=== PATIENT | male | born 1950 | race Caucasian/White ===

== ENCOUNTER → 2023-06-19 11:11 | Outpatient (REF) | payer MEDICARE, SELFPAY | LOC: MRI 3T 11:11 | PROVIDERS: ATTENDING PHYSICIAN Family Medicine | DX: M25.562 Pain in left knee (principal) | CPT/HCPCS: 73721 ==

== ENCOUNTER → 2023-07-21 15:05 | Outpatient (REF) | payer MEDICARE, SELFPAY | LOC: RAD 15:05 | PROVIDERS: ATTENDING PHYSICIAN Nurse Practitioner Family; FAMILY PHYSICIAN Family Medicine | DX: R74.8 Abnormal levels of other serum enzymes (principal); F10.10 Alcohol abuse, uncomplicated; R53.83 Other fatigue | CPT/HCPCS: 74177; Q9967 ==

== ENCOUNTER 2023-08-10 06:04 | Inpatient (IN) | payer MEDICARE, SELFPAY ==
--- NOTE | 2023-07-20 13:32 | CM ---
Addendum entered by Shanna Myles 07/21/23 06:26:
[place] text received from Dr. Jarrell that patient can just do a home exercise program on his own and not attend outpatient PT.
Original Note:
Patient is scheduled for an elective L TKR 08/10/23. Spoke with patient prior to surgery via telephone. Patient had a R TKR at in 2019. Reintroduced role of Orthopedic Navigator. Patient reports that he lives with his in a one story home.
There are two steps to enter. There is finished basement he has to go to daily. He currently functions independently and occasionally uses a cane. He also has a rolling walker. He has never had VN services. PCP is Ernesto Chowdary.
Discussed orthopedic program and post surgical plans. Reviewed anticipated length of stay and that goal is for him to return home at discharge. Also reviewed outpatient PT. Patient is in agreement with tentative plan and will have support from his
when he goes home. He states that he plans to do a home exercise program and will not be attending outpatient PT unless recommended. [place] text sent to Dr. Jarrell to discuss patient's plans; will await response.
Patient will complete online education.
Plan: Orthopedic Navigator will remain available to assist with the care of patient and will reassess discharge needs after surgery.
[2023-07-25 08:19] VITALS: BMI 29.2
[2023-07-25 08:45] LABS: Hematocrit 41.8 % (39.0-52.0); Hemoglobin 14.5 g/dL (13.0-18.0); Mean Corp Hgb Conc. 34.7 g/dL (33.0-37.0); Mean Corpuscular Hgb 31.6 pg (27.0-31.0); Mean Corpuscular Volume 91.1 fL (80.0-94.0); Mean Platelet Volume 9.6 fL (7.4-10.4); Platelet Count 327 10^3/uL (130-400); Red Blood Cell Count 4.59 10^6/uL (4.70-6.10); Red Cell Dist. Width 14.9 % (11.5-14.5); White Blood Cell Count 6.6 10^3/uL (4.8-10.8)
[2023-07-25 09:08] LABS: ALT (SGPT) 39 U/L (0-50); AST (SGOT) 49 U/L (17-59); Alkaline Phosphatase 69 U/L (38-126); Blood Urea Nitrogen 14 mg/dl (9-20); Calcium 9.1 mg/dl (8.4-10.2); Carbon Dioxide 31 mmol/L (22-30); Chloride 101 mmol/L (98-107); Estimated Creatinine Clearance 69 ml/min; Glucose 95 mg/dl (70-99); Potassium 4.5 mmol/L (3.5-5.1); Sodium 134 mmol/L (135-145); Total Bilirubin 0.6 mg/dl (0.2-1.3); Total Protein 6.7 g/dl (6.3-8.2); eGFR > 60.00
--- NOTE | 2023-07-25 12:05 | HPS.HSE ---
Family Physician
-
Family Physician: Ernesto Chowdary
Chief Complaint
-
Advanced primary osteoarthritis of the left knee.
History of Present Illness
The patient is a 72-year-old male presenting today for advanced primary osteoarthritis of the left knee. The patient previously underwent an uncomplicated right total knee arthroplasty in June [address] Errol Jarrell. He returns to
[facility] today with complaints of significant left knee pain associated with his osteoarthritis. He notes that his current left knee pain is greatly interfering with his activities of daily living and is overall impacting his quality of
life. He has tried and failed multiple conservative treatment measures in the past for his left knee pain. These conservative treatment measures include physical therapy, self-directed therapeutic exercises, injection therapy, medical management
with Tylenol and NSAIDs, and the application of ice and/or heat. Recent MRI findings of the left knee demonstrated a radial tear at the posterior root attachment of the medial meniscus, mucoid degeneration of the ACL, a moderate knee joint effusion
and a large Jin's cyst with suspicion for a partial Jin's cyst rupture. He was determined to be in need of a left total knee arthroplasty. He denies any current complaints today, such as chest pain, shortness of breath, nausea, vomiting,
diarrhea, lightheadedness, dizziness, cough, sore throat, or fever.
Medical History
Past Medical History
Past Medical History: Reports Other
Additional Past Medical History:
1. Osteoarthritis, status post right total knee arthroplasty, 06/2019, by Dr. Errol Jarrell.
2. Hyperlipidemia.
3. PVCs with intermittent palpitations, controlled with Metoprolol.
4. Left anterior fascicular block.
5. Mild-moderate valvular disease.
6. GERD.
7. Colon polyps.
8. GI bleed secondary to NSAIDs, 2008, without recurrence; on Lansoprazole.
9. History of fecal incontinence, controlled with Colestipol.
10. Migraines.
11. BPH with urinary retention.
12. Anxiety.
13. Depression.
14. Dysthymic disorder.
15. COVID 19, 05/2020, with residual fatigue.
16. Mild hyponatremia.
17. Prediabetes, A1c 5.9.
18. Remote history of tobacco abuse.
19. Daily alcohol.
Past Surgical History: Reports Other
Additional Past Surgical History:
1. Right total knee arthroplasty, 06/2019, by Dr. Errol aJrrell.
2. Left and right inguinal hernia repair.
3. Splenectomy.
4. Tonsillectomy.
5. Colonoscopy x2.
6. Endoscopy.
Social History
Tobacco: Former Smoker (He is a former 1 pack per day cigarette smoker who quit tobacco products altogether in 1987. )
Alcohol: Daily (He reportedly drinks 3 beers daily. )
Personal:
Living: Other (He lives with his in a one-level home.)
Family History
Family History: Not pertinent
Allergies / Home Medications
Allergy/Medication List:
Home medications:
1. Tylenol with Codeine 1-2 tablets p.o. every 6 hours as needed.
2. Ascorbic acid 1000 mg p.o. twice a day.
3. Cholecalciferol 1000 units p.o. daily.
4. Citalopram 5 mg p.o. daily.
5. Colestipol 4 grams p.o. daily.
6. [place] 5-325 mg, 1 tablet p.o. every 8 hours as needed.
7. Lansoprazole 30 mg p.o. daily.
8. Lorazepam 0.5 mg p.o. daily as needed.
9. Magnesium 500 mg p.o. daily.
10. Metoprolol tartrate 25 mg p.o. daily.
11. Multivitamin 1 tablet p.o. daily.
12. Sasser 3 1 capsule p.o. twice a day.
13. Rosuvastatin 40 mg p.o. every evening.
14. Sildenafil 50 mg p.o. daily as needed.
15. Zinc sulfate 220 mg p.o. daily.
Allergies: NSAIDs and Aspirin (contraindicated with prior GI bleed). Penicillin.
Review of Systems
-
A 12 point ROS was completed and negative except as noted: Yes
Physical Exam
Vital Signs
Blood pressure 146/87. Heart rate 57. Respirations 18. Pulse ox 97%.
Height 5 feet, 9.75 inches. Weight 91.7 kg. BMI 29.2.
Physical Exam
General: Well Developed, Well Nourished and No Apparent Distress
HEENT: NormoCephalic, Moist mucous membranes, Atraumatic and PERRLA
Respiratory: Clear
Cardiac: Bradycardia
GI: Soft, Non Tender and Non Distended
Musculoskeletal: Other (Left knee and lower extremity: Range of motion 0-150. Mild effusion. Tenderness to palpation of peripatellar and medial joint line. Mildly tender to palpation of medial head of gastrocnemius muscle. Neutral alignment. )
Skin: Warm and Dry
Neuro: AO x 3 and Nonfocal/grossly intact
Laboratory Results
-
07/25/23 07:53
07/25/23 07:53
Laboratory Results
Total Bilirubin 0.6 mg/dl (0.2-1.3) 07/25/23 07:53
AST 49 U/L (17-59) 07/25/23 07:53
ALT 39 U/L (0-50) 07/25/23 07:53
Alkaline Phosphatase 69 U/L (38-126) 07/25/23 07:53
Hemoglobin A1c 5.9.
MRSA screen negative.
EKG provided by Cardiology.
Echocardiogram 03/07/2023: Normal left ventricular chamber size. Normal left ventricular wall thickness. Low normal left ventricular systolic function. Left ventricular ejection fraction is 52% by volumetric assessment. Normal diastolic function.
Normal right ventricular size and function. Mild bi-leaflet mitral valve prolapse. Mild-moderate mitral regurgitation. Mild aortic regurgitation. Mild tricuspid regurgitation. Estimated pulmonary artery pressure of 35-40 mmHg, assuming a right
atrial pressure of 3 mmHg. Compared to previous echo 10/06/2015, the mitral regurgitation is slightly worse.
Impression/Plan
-
CLEARANCES:
1. Primary medical, Dr. Abebe Dimas, cleared.
Primary medical phone number: [phone].
2. Cardiology, Dr. Calin Vanegas, cleared.
3. Dental waived.
IMPRESSION/PLAN:
1. Advanced primary osteoarthritis of the left knee in need of a left total knee arthroplasty with Dr. Errol Jarrell on 08/10/2023. The benefits and risks of the procedure have been discussed with the patient. The patient understands these risks and
wishes to proceed.
2. DVT prophylaxis: Enteric coated Aspirin 81 mg p.o. daily with bilateral venous compression device.
3. BPH with underlying urinary retention: Flomax has been initiated pre-operatively and will continue for 1 week post-operatively. We will monitor voiding during admission.
4. History of GI bleed, 2008, secondary to NSAIDs as well as underlying daily alcohol: We will advise that he continue his Lansoprazole daily while on a baby Aspirin for DVT prevention.
5. Daily alcohol: During admission, we will include Gabapentin 300 mg p.o. three times a day, Serax 10 mg p.o. at bedtime, Thiamine, and Folate. We will monitor closely for signs of potential withdrawal.
6. Pain management: We will utilize Oxycodone as needed for moderate-severe post-operative pain. We will also increase his Ativan to twice a day dosing for 1 week post-surgery. These medications helped with his pain overall after his right total
knee arthroplasty in June 2019.
Patient's home phone number: [phone].
Patient's cell phone number: [phone].
Patient's contact (Amy Briscoe - Spouse): [phone].
[2023-07-25 13:08] LABS: Glycohemoglobin (HgbA1c) 5.9 % (4.0-5.6)
[2023-07-25 16:16] VITALS: BMI 29.2
[2023-08-10] VITALS (25 sets, daily range): BP systolic 107–150; BP diastolic 65–86; PULSE 71; O2SAT 98; BMI 29.2
[2023-08-10] MEDS: TYLENOL 650 MG PO ×4 (06:42→19:37)
[2023-08-10] MEDS: NORMOSOL-R 1000 IV ×2 (06:42→10:06)
[2023-08-10] MEDS: ROXICODONE 5 MG PO ×3 (10:05→17:37)
[2023-08-10] MEDS: DILAUDID 0.5 MG IV ×5 (10:19→12:59)
[2023-08-10] MEDS: DEMEROL 12.5 MG IV ×2 (11:00→11:30)
[2023-08-10] MEDS: NEURONTIN 300 MG PO ×3 (12:58→21:17)
[2023-08-10] MEDS: FLOMAX 0.400000000000000022 MG PO (12:58)
--- NOTE | 2023-08-10 13:46 | W.PN.ORTHO ---
Today's Communication / Plan
-
D/c when clinically stable.
Assessment
.
Distal Motor Intact: Yes
Dressing:
Clean, dry and intact.
Assessment:
L knee OA s/p L TKA w/ Dr Jarrell 08/10/23
- s/p R TKA, 06/2019, by Dr Jarrell
DVT prophylaxis - Enteric coated ASA 81 mg p.o. daily x4 weeks, b/l venous foot pumps
PVCs with intermittent palpitations and LAFB - monitor on tele
- Continue BB
GERD and GI bleed secondary to NSAIDs, 2008, without recurrence - continue PPI therapy
- NO NSAIDS
- Enteric coated baby ASA ONLY for DVT prophylaxis (tolerated after last R TKA)
History of fecal incontinence, controlled with Colestipol - continue Colestipol
- Will adjust post-op bowel regimen to Colace only
BPH with urinary retention - started on Flomax pre-op and will continue daily for 1 week post-surgery
- Monitor voids
- Bladder scan/straight cath as indicated (needed straight cath x1 in PACU)
Daily alcohol - reports 3 beers/daily - MSAS protocol in place
- Start Gabapentin TID, Serax HS, Thiamine, and Folate
Anxiety - will increase Ativan to BID x1 week POD 1 at request of pt
HLD
Mild-moderate valvular disease
Colon polyps
Migraines
Depression
Dysthymic disorder
COVID 05/2020, with residual fatigue
Mild hyponatremia
Prediabetes, A1c 5.9
Remote history of tobacco abuse
Plan
.
Surgery / Date: L TKA w/ Dr Jarrell 08/10/23
DVT Prophylaxis: Aspirin
Activity:
Out of bed.
PT/OT
Discharge Plan: Home
Subjective
.
.:
Patient resting comfortably in PACU.
Reports L knee discomfort but tolerable at present.
Denies any new significant complaints.
Straight cath x1 in PACU.
Vital Signs and Labs
.
Vital Signs and Labs:
Lab Results
07/25/23 07:53
07/25/23 07:53
Temp Pulse Resp BP Pulse Ox
97.6 F 73 13 129/65 97
08/10/23 10:30 08/10/23 11:30 08/10/23 11:15 08/10/23 11:30 08/10/23 11:30
Physical Exam
-
HEENT: No pallor, cyanosis, or jaundice. Throat clear.
NECK: Supple. No JVD.
RESPIRATORY: Lungs clear to auscultation.
CVS: S1, S2 normal. RRR.�
ABDOMEN: Soft, non-tender. No distension.
EXTREMITIES: Strength equal, no calf pain with palpation/dorsiflexion. Calves soft.
DESIGN COORDINATOR: AOx3. No focal deficits. investment advisor grossly intact
[2023-08-10] MEDS: FOLVITE 0.5 MG PO (13:51)
[2023-08-10] MEDS: VITAMIN C 1000 MG PO ×2 (13:52→19:37)
[2023-08-10] MEDS: PROTONIX 40 MG PO (13:52)
[2023-08-10] MEDS: VITAMIN D3 (cholecalciferol) 50 MCG PO (13:52)
[2023-08-10] MEDS: VITAMIN B1 100 MG PO (13:52)
[2023-08-10] MEDS: ANCEF 5 IV ×2 (13:53→21:16)
--- NOTE | 2023-08-10 14:36 | PTCARENOTE ---
Patient admitted from pacu post left total knee replacement.The patient reports his pain at a 6 out of 10.The dressing on the knee is clean and dry with no drainage.Neurovascular assessment is within normal limits and ongoing.Vital signs are
stable.The patient is in his bed with the call sorenson.
--- NOTE | 2023-08-10 15:40 | OR.RPT ---
Operative Report
Operative Report
Orthopaedic Surgery Operative Note
DATE OF OPERATION: 08/10/2023
PREOPERATIVE DIAGNOSES: Osteoarthritis, left knee.
POSTOPERATIVE DIAGNOSES: Osteoarthritis, left knee.
OPERATION PERFORMED: Left total knee arthroplasty.
SURGEON: Errol Jarrell MD
ASSISTANTS: Kris Beckford PA-C who assisted with patient and limb positioning and retraction
ANESTHESIA: Spinal
COMPLICATIONS: None.
ESTIMATED BLOOD LOSS: 20mL
DRAINS: None
TOURNIQUET TIME: 42 minutes.
IMPLANTS:
- Sebastian Persona CR Femur, size 10
- Sebastian Persona tibia base plate, size F
- Sebastian Persona ultracongruent articular surface, 11 mm
INDICATIONS: The patient presented to my office with debilitating left knee pain due to osteoarthritis. We reviewed the natural history of this problem, as well as the risks, benefits, and alternatives of various treatment options. The patient
exhausted all nonoperative treatment options and wished to proceed with knee replacement surgery. The patient understood the risks which included, but were not limited to, bleeding, infection, failure to relieve pain, more pain than preop, damage to
blood vessels and nerves, need for reoperation, mechanical failure of the implants, wound healing problems, stiffness, instability, blood clot, pulmonary embolism, myocardial infarction, pneumonia, arrhythmia, CVA, and . The patient accepted
these risks and wished to proceed. All questions were answered, and informed consent was obtained.
PROCEDURE IN DETAIL: The patient was identified in the preoperative holding area. The left knee was identified as the operative site. The patient was taken in the operating room and placed in a supine position on the operating table. Spinal
anesthesia was performed. IV antibiotics and tranexamic acid were administered. A bump was placed under the left hemipelvis. A well-padded tourniquet was placed on the proximal thigh. All bony prominences were well padded. The left lower extremity
was prepped and draped in the usual sterile fashion.
We performed a surgical time-out. An interarticular block was performed with local anesthetic with epinephrine. The limb was exsanguinated with an Esmarch bandage, then the tourniquet was inflated to 250 mmHg. A midline skin incision was made
followed by a medial parapatellar arthrotomy. A subperiosteal peel was performed on the medial tibia. I excised part of the infrapatellar fat pad to improve our visualization as well as tissue over anterior femur. The patella was everted and the
knee was flexed. I excised the remnants of the anterior and posterior cruciate ligaments as well as tibial and femoral osteophytes with rongeurs.
The knee was flexed, and the extramedullary tibial cutting guide was aligned. [place] was aligned at neutral, rotation was centered on the tibial tubercle, and coronal alignment was aligned with the mechanical axis of the tibia and center of the ankle
joint. The cut height was 10mm off the lateral tibia joint surface. The guide was secured into place. The MCL and LCL were protected. The tibia surface was cut. The cut surface was inspected after removal to ensure appropriate height and slope based
on the preoperative plan. The cut was checked with a drop sandeep. It was centered nicely at the ankle.
A drill was used to open the femoral canal. The intramedullary distal femoral cutting guide was inserted into the femur. This was set at 5 degrees +0. This was secured into place with three pins. The cut level was checked with an philip wing. The
distal femur was cut through the cutting guide. The IM guide was reinserted to double check that the level of resection was flush and in appropriate alignment.
Everetts�s line and the transepicondylar axis were marked on the femur. The femoral sizing guide was applied to the anterior femur. Pins were inserted, and the 4-in-1 cutting guide was applied and secured into place. The rotation was compared to
Everetts�s line, the transepicondylar axis, and the neutral tibia cut and was found to be appropriate. The width was checked and found to be appropriate and lateralized on the femur. The anterior, posterior, and chamfur cuts were made. A lamina
acute care assistant was used to open the flexion gap, and posterior osteophytes were removed with a curved osteotome. The remnant medial and lateral meniscus were also removed. I prophylactically cauterized the lateral geniculate arteries. A 10mm spacer block
was applied to the flexion gap and was noted to be balanced medially and laterally. The knee was extended, and the block showed symmetric to extension and flexion gaps.
The tibia was exposed and sized. Rotation was set in line with the tibial tubercle and congruent with the femur. The trial was secured into place with two pins. The trial femur was impacted into place, and a trial articular surface was placed. The
knee was taken through range of motion and noted to be stable throughout the arc of motion without gaping or excess tension.The patella tracked centrally throughout the arc of motion without need for further releases. No full thickness cartilage
defects
The trials were removed. The tibia keel was prepared with the punch and the drill. The bone surfaces were irrigated with sterile saline and dried. The cement was mixed in a vacuum mixer. Cement gun was used to apply cement to the tibial surface and
the undersurface of the tibial implant. Cement was pressurized into the tibial canal and tibia surface. The tibial component was impacted into place. Excess cement was removed. Cement was applied to the femoral surface and the femoral component. The
femoral component was impacted into place, and excess cement removed. A trial articular surface was inserted, and the knee was extended while the cement polymerized. The tourniquet was let down, and meticulous hemostasis was achieved. Dilute
betadine was poured into the wound and allowed to soak for 3 minutes. The knee was irrigated with copious normal saline.
Once the cement was polymerized, the trial articular surface was removed. Any excess cement was removed. The knee was trialed, and the final articular surface was selected and inserted into the tibial locking mechanism. The knee was reduced. A fresh
drape was applied to the surgical field.
The arthrotomy was closed with 0-PDS. Once closed, an interarticular block was performed with local anesthetic with epi. The deep dermal layer was closed with 2-0 PDS, and the subcuticular skin was closed with 3-0 monocryl. A Dermabond Prineo
dressing was applied to the skin in full flexion. Once this was completely dry, a sterile waterproof dressing was applied.
The anesthesia team performed an adductor canal block in the OR. The patient awoke from anesthesia without any difficulties. The sponge and instrument counts were correct x2 at the end of the case.
Julian Jarrell MD
[2023-08-10] MEDS: CRESTOR 40 MG PO (17:32)
[2023-08-10] MEDS: ASPIR LOW (ENTERIC COATED) 81 MG PO (17:32)
[2023-08-10] MEDS: CELEXA 5 MG PO (17:32)
[2023-08-10] MEDS: COLACE 100 MG PO (19:37)
[2023-08-10] MEDS: BACTROBAN 2% OINTMENT 1 APPLIC NASAL (21:16)
[2023-08-10] MEDS: SERAX 10 MG PO (21:21)
[2023-08-10] MEDS: ROXICODONE 10 MG PO (22:28)
[2023-08-11] MEDS: TYLENOL PO (00:26)
[2023-08-11 03:35] VITALS: BP 150/82
[2023-08-11] MEDS: ROXICODONE 10 MG PO ×3 (03:36→12:55)
[2023-08-11] MEDS: TYLENOL 650 MG PO ×3 (03:37→12:55)
[2023-08-11 07:55] VITALS: BP 152/85
[2023-08-11] MEDS: VITAMIN C 1000 MG PO (08:25)
[2023-08-11] MEDS: VITAMIN B1 100 MG PO (08:26)
[2023-08-11] MEDS: FLOMAX 0.400000000000000022 MG PO (08:26)
[2023-08-11] MEDS: ASPIR LOW (ENTERIC COATED) 81 MG PO (08:26)
[2023-08-11] MEDS: PROTONIX 40 MG PO (08:26)
[2023-08-11] MEDS: FOLVITE 0.5 MG PO (08:26)
[2023-08-11] MEDS: TOPROL XL 25 MG PO (08:26)
[2023-08-11] MEDS: VITAMIN D3 (cholecalciferol) 50 MCG PO (08:26)
[2023-08-11] MEDS: COLACE 100 MG PO (08:27)
[2023-08-11] MEDS: ATIVAN 0.5 MG PO (08:27)
[2023-08-11] MEDS: NEURONTIN 300 MG PO (08:27)
[2023-08-11] MEDS: BACTROBAN 2% OINTMENT 1 APPLIC NASAL (08:28)
--- NOTE | 2023-08-11 08:52 | CM ---
Addendum entered by Shanna Myles 08/11/23 11:44:
Patient did well in therapy. He has no concerns about going home and has updated his .
Original Note:
Reviewed chart and held rounds with PT, OT and nursing. Patient admitted as planned for elective L TKR. Met with patient at bedside. Confirmed information previously obtained for assessment. Also discussed discharge plans. The plan is for patient to
return home at discharge. He will have support from his when he goes home. Patient continues to plan to do a home exercise program.
Patient has a rolling walker and cane.
He will use [facility] pharmacy for discharge prescriptions.
[2023-08-11 11:13] VITALS: BP 135/67; PULSE 78; O2SAT 93
[2023-08-11 11:36] VITALS: BP 135/67; PULSE 78; O2SAT 93
[2023-08-11 12:00] VITALS: BP 138/66
--- NOTE | 2023-08-11 12:00 | W.PN.ORTHO ---
Today's Communication / Plan
-
D/c today since clinically stable, did well w/ PT and OT
Assessment
.
Distal Motor Intact: Yes
Dressing:
Clean, dry and intact.
Assessment:
L knee OA s/p L TKA w/ Dr Jarrell 08/10/23
- s/p R TKA, 06/2019, by Dr Jarrell
DVT prophylaxis - Enteric coated ASA 81 mg p.o. daily x4 weeks, b/l venous foot pumps
PVCs with intermittent palpitations and LAFB - maintaining NSR on tele
- Continue BB
GERD and GI bleed secondary to NSAIDs, 2008, without recurrence - continue PPI therapy
- NO NSAIDS
- Enteric coated baby ASA ONLY for DVT prophylaxis (tolerated after last R TKA)
History of fecal incontinence, controlled with Colestipol - continue Colestipol
- Adjusted post-op bowel regimen to Colace only
BPH with urinary retention - started on Flomax pre-op and will continue daily for 1 week post-surgery
- Voiding appropriately by POD 1
- Needed straight cath x1 in PACU
Daily alcohol - reports 3 beers/daily - MSAS assessments stable over last 24 hours
- Continue Gabapentin TID
- s/p Serax HS, Thiamine, and Folate during admission
- Will advise limiting alcohol while on post-op pain meds
Anxiety - will increase Ativan to BID x1 week POD 1 at request of pt
HLD
Mild-moderate valvular disease
Colon polyps
Migraines
Depression
Dysthymic disorder
COVID 05/2020, with residual fatigue
Mild hyponatremia
Prediabetes, A1c 5.9
Remote history of tobacco abuse
Plan
.
Surgery / Date: L TKA w/ Dr Jarrell 08/10/23
DVT Prophylaxis: Aspirin (EC 81 mg daily x4 weeks )
Activity:
Out of bed.
PT/OT
Discharge Plan: Home
Subjective
.
.:
Patient appearing to rest comfortably in his chair this morning.
L knee pain overall well controlled w/ current pain med regimen.
Denies any new significant complaints.
Eager for potential d/c today.
Vital Signs and Labs
.
Vital Signs and Labs:
Lab Results
07/25/23 07:53
07/25/23 07:53
Temp Pulse Resp BP Pulse Ox
98.1 F 94 18 152/85 94
08/11/23 07:55 08/11/23 08:26 08/11/23 07:55 08/11/23 08:26 08/11/23 07:55
Physical Exam
-
HEENT: No pallor, cyanosis, or jaundice. Throat clear.
NECK: Supple. No JVD.
RESPIRATORY: Lungs clear to auscultation.
CVS: S1, S2 normal. RRR.� No murmur, rub or gallop.
ABDOMEN: Soft, non-tender. No distension.
EXTREMITIES: Mild post-op L knee edema. Strength equal, no calf pain with palpation/dorsiflexion. Calves soft.
MEDICAL EDITOR: AOx3. No focal deficits. hook loader grossly intact
--- NOTE | 2023-08-11 12:13 | W.DS.TRANS ---
DC Summary - Rn Otolaryngology
-
Discharge Instructions:
Sleep Apnea Risk Low
Discharge Diagnosis/Procedures L knee OA s/p L TKA w/ Dr Jarrell 08/10/23
Diet Regular
Activity As tolerated,With Walker
Driving Restrictions Not until seen by your Dr
Bathing Restrictions OK to Shower
Wound Care Leave dressing on until seen by surgeon's office
for follow-up in 2 weeks.
Instructions:
Stand-Alone Forms: Total Hip/Knee Replacement D/C
Changes to Home Medications: Yes
Discharge Medications:
DC Medications w/original date entered in [employer] (mytaxi)
citalopram 20 mg tablet 5 mg PO DAILY Depression 07/22/08
metoprolol tartrate 25 mg tablet 25 mg PO DAILY Heart Failure 06/05/19
multivitamin (One Daily Multivitamin tablet) 1 ea PO DAILY Supplement 06/05/19
sildenafil 100 mg tablet 50 mg PO DAILYPRN PRN unknown 06/05/19
zinc sulfate 50 mg zinc (220 mg) capsule 220 mg (4.4 x 50 mg zinc (220 mg)) PO DAILY #14 caps 05/30/20
colestipol 1 gram tablet 4 g PO DAILY High Cholesterol 07/21/23
lansoprazole 30 mg capsule,delayed release 30 mg PO DAILY Gastrointestinal Issue 07/21/23
magnesium 250 mg tablet 500 mg PO DAILY Electrolyte Repletion 07/21/23
omega 2-gdn-gkr-fish oil 1,000 mg (120 mg-180 mg) capsule (Fish Oil) 1 cap PO BID High Cholesterol 07/21/23
rosuvastatin 40 mg tablet 40 mg PO QPM High Cholesterol 07/21/23
mupirocin 2 % topical ointment 1 applic intranasal BID #1 tube 07/25/23
tamsulosin 0.4 mg capsule (Flomax) 0.4 mg PO HS #10 caps 07/25/23
acetaminophen 500 mg tablet (Acetaminophen Extra Strength) 1,000 mg (2 x 500 mg) PO Q6H #60 tabs 08/11/23
ascorbic acid (vitamin C) 500 mg tablet (Vitamin C) 1,000 mg (2 x 500 mg) PO BID #56 tabs 08/11/23
aspirin 81 mg tablet,delayed release 81 mg PO DAILY #30 tabs 08/11/23
cholecalciferol (vitamin D3) 25 mcg (1,000 unit) tablet 1,000 unit PO DAILY Supplement #1 tab 08/11/23
docusate sodium 100 mg capsule 100 mg PO BID #30 caps 08/11/23
gabapentin 300 mg capsule 300 mg PO TID neuropathic pain #30 caps 08/11/23
lorazepam 0.5 mg tablet 0.5 mg PO BID #14 tabs 08/11/23
oxycodone 5 mg tablet 5 - 10 mg (1 - 2 x 5 mg) PO Q4H PRN moderate-severe pain #30 tabs 08/11/23
prochlorperazine maleate 5 mg tablet 5 mg PO Q8H PRN nausea/vomiting #30 tabs 08/11/23
sennosides 8.6 mg tablet (Senna Laxative) 17.2 mg (2 x 8.6 mg) PO BID PRN constipation #30 tabs 08/11/23
Home Medication Changes
tamsulosin 0.4 mg capsule (Flomax) 0.4 mg PO HS #10 caps 07/25/23
acetaminophen 500 mg tablet (Acetaminophen Extra Strength) 1,000 mg (2 x 500 mg) PO Q6H #60 tabs 08/11/23
aspirin 81 mg tablet,delayed release 81 mg PO DAILY #30 tabs 08/11/23
docusate sodium 100 mg capsule 100 mg PO BID #30 caps 08/11/23
gabapentin 300 mg capsule 300 mg PO TID neuropathic pain #30 caps 08/11/23
lorazepam 0.5 mg tablet 0.5 mg PO BID #14 tabs 08/11/23 x1 week post-surgery
oxycodone 5 mg tablet 5 - 10 mg (1 - 2 x 5 mg) PO Q4H PRN moderate-severe pain #30 tabs 08/11/23
prochlorperazine maleate 5 mg tablet 5 mg PO Q8H PRN nausea/vomiting #30 tabs 08/11/23
sennosides 8.6 mg tablet (Senna Laxative) 17.2 mg (2 x 8.6 mg) PO BID PRN constipation #30 tabs 08/11/23
Pending Results: No
== END 2023-08-11 14:54 | disposition home or self-care (01) | DRG 470 ==
LOC: 2 SOUTH 06:04
PROVIDERS: Physician Assistant; ADMITTING PHYSICIAN Orthopaedic Surgery; FAMILY PHYSICIAN Family Medicine
PROC: 0SRD0J9 Replacement of Left Knee Joint with Synthetic Substitute, Cemented, Open Approach (ICD-10-PCS; 2023-08-10)
DX: M17.12 Unilateral primary osteoarthritis, left knee (principal); E87.1 Hypo-osmolality and hyponatremia; E78.5 Hyperlipidemia, unspecified; F34.1 Dysthymic disorder; I44.4 Left anterior fascicular block; F10.90 Alcohol use, unspecified, uncomplicated; K21.9 Gastro-esophageal reflux disease without esophagitis; G43.909 Migraine, unspecified, not intractable, without status migrainosus; N40.1 Benign prostatic hyperplasia with lower urinary tract symptoms; R33.8 Other retention of urine; F41.9 Anxiety disorder, unspecified; R73.03 Prediabetes; Z86.010 Personal history of colon polyps; Z86.16 Personal history of COVID-19; Z87.891 Personal history of nicotine dependence
CPT/HCPCS: 36415; 73560; 80053; 83036; 85027; 87070; 97110; 97116; 97162; 97166; 97530; 97535; C1713; C1776

== ENCOUNTER 2023-08-28 12:48 | Emergency (ER) | payer MEDICARE, SELFPAY ==
[2023-08-28 12:53] VITALS: BP 142/87
--- NOTE | 2023-08-28 15:54 | ED.GENMED ---
History of Present Illness
General
Chief Complaint: Anxiety
Source: patient and spouse
Exam Limitations: none
Time Seen by Provider: 08/28/23 15:35
Nursing documentation reviewed up to this point in time: agreed with
Travel History
Have you had any contact with someone who has COVID-19?: No
Do you have any symptoms of coronavirus? Fever > 100 degrees, chills, cough, shortness of breath, sore throat, loss of taste or smell, muscle aches, or headache?: No
History of Present Illness
History of Present Illness:
72-year-old male with past medical history of panic attacks. Claims that he is been taking oxycodone after knee surgery that occurred 2 weeks ago and concluded taking the oxycodone 2 days ago started having anxiety shortly after. Has had some mild
nausea and itchiness as well. Has been taking Celexa and intermittent Ativan last dose of Ativan earlier today.
Past History
Past History
ED Past Medical History: Valvular disease (Mitral valve prolapse) and Other (Stomach ulcers, frequent headaches)
ED Past Surgical History: Other (History of hernia surgery, several colonoscopies, splenectomy in 1970)
Social History
Personal:
Living: with family
Employment: Employed
Review of Systems
Review of Systems
Allergies reviewed?: Yes
All Other Systems: ROS reviewed and negative except as documented in HPI and ROS
Phy Exam
Physical Exam
Physical Exam:
GENERAL: Alert , in no apparent distress
EYE: pupils equal and reactive
NECK: Supple, no significant adenopathy.
ENT: o/p clr, mmm.
CARDIAC: Regular rate and rhythm .
LUNGS: Clear breath sounds bilaterally, no acute respiratory distress, no wheezes/rales/rhonchi
ABDOMEN: Soft, without focal tenderness, no r/g, no cvat
NEUROLOGICAL: Alert and oriented, no focal neuro deficits
SKIN: Warm and dry, skin intact.
MUSCULOSKELETAL: No edema, well perfused.
PSYCH: Normal and appropriate interaction.
Course
Orders/Labs/Results
Orders:
Orders
08/28/23 15:47
Lorazepam [Ativan] 1 mg IM NOW STA
Vital Signs
Initial and Last Documented VS:
Initial Vital Signs
Temp Pulse Resp BP Pulse Ox
99.1 F 89 16 142/87 97
08/28/23 12:53 08/28/23 12:53 08/28/23 12:53 08/28/23 12:53 08/28/23 12:53
Last Documented Vital Signs
Temp Pulse Resp BP Pulse Ox
99.1 F 89 16 142/87 97
08/28/23 12:53 08/28/23 12:53 08/28/23 12:53 08/28/23 12:53 08/28/23 12:53
MDM/Problems Addressed
MDM/Problems Addressed:
72-year-old male presenting to the emergency department today with concerns of anxiety. Does have a history of panic attacks feels very similar. Denies any specific symptoms other than anxiety some mild nausea. Recently stopped oxycodone 2 days
ago that he was taking after knee surgery that occurred 2 weeks ago. Symptoms likely secondary to opioid withdrawal. He was given a dose of Ativan here. He had improving symptoms. No ongoing issues stable for outpatient management advised close
follow-up. Return precautions given.
*Critical Care Note
Total Time (30-74mins, 75-104mins- exclusive of procedures): Not Applicable
ED Attending Note
-
Portions of this chart may have been created with voice recognition software.� Occasional wrong word or��sound alike� substitutions may have occurred due to the inherent limitations of voice recognition software.
Discharge Plan
Departure
Patient Disposition: Home (Routine Discharge)
Date of Disposition: 08/28/23
Time of Disposition: 16:24
Patient with high blood pressure during this ER visit?: No
Condition: Good
Covid-19: Not Applicable
Discharge Problem:
Anxiety
Instructions: Anxiety, Adult (DC)
Prescriptions:
No Action
citalopram 20 MG tablet
5 mg PO DAILY
Patient Comments:
lunch
multivitamin [One Daily Multivitamin] 1 EACH tablet
1 ea PO DAILY
Patient Comments:
lunch
sildenafil 100 MG tablet
50 mg PO DAILYPRN PRN (Reason: unknown)
metoprolol tartrate 25 MG tablet
25 mg PO DAILY
Patient Comments:
took 12.5mg 08/10/23 at 0500
zinc sulfate 220 MG capsule
220 mg PO DAILY Qty: 14 0RF
Rx Instructions:
Take 220 mg daily for 14 days
lansoprazole 30 mg Capsule,Delayed Release(Dr/Ec)
30 mg PO DAILY
magnesium 250 mg Tablet
500 mg PO DAILY
colestipol 1 gram Tablet
4 g PO DAILY
rosuvastatin 40 mg Tablet
40 mg PO QPM
omega 7-lqt-wbt-fish oil [Fish Oil] 1,000 mg (120 mg-180 mg) Capsule
1 cap PO BID
Hold Instructions: Resume on 08/17/23.
mupirocin 2 % ointment
1 applic intranasal BID Qty: 1 0RF
Patient Comments:
started treatment monday08/07/23 in am and completed BID and last took at home 08/10/23 in am
tamsulosin [Flomax] 0.4 mg capsule
0.4 mg PO HS Qty: 10 0RF
Patient Comments:
last took 08/09/23 at 2100
Rx Instructions:
Start 3 nights prior to surgery and continue for 1 week post-surgery.
HOLD if systolic blood pressure <130.
aspirin 81 mg Tablet,Delayed Release (Dr/Ec)
81 mg PO DAILY Qty: 30 0RF
Rx Instructions:
Take daily x4 weeks for blood clot prevention
lorazepam 0.5 mg Tablet
0.5 mg PO BID Qty: 14 0RF
Rx Instructions:
Home medication.
Increase to twice day dosing x1 week post-surgery.
prochlorperazine maleate 5 mg Tablet
5 mg PO Q8H PRN (Reason: nausea/vomiting) Qty: 30 0RF
docusate sodium 100 mg Capsule
100 mg PO BID Qty: 30 0RF
gabapentin 300 mg Capsule
300 mg PO TID Qty: 30 0RF
oxycodone 5 mg Tablet
5 - 10 mg PO Q4H PRN (Reason: moderate-severe pain) Qty: 30 0RF
Rx Instructions:
1 tab for moderate pain, 2 if severe.
Dx total joint
sennosides [Senna Laxative] 8.6 mg Tablet
17.2 mg PO BID PRN (Reason: constipation) Qty: 30 0RF
Rx Instructions:
Add to bowel regimen of Colace if no bowel movement occurs within 2-3 days post-surgery.
acetaminophen [Acetaminophen Extra Strength] 500 mg tablet
1,000 mg PO Q6H Qty: 60 0RF
Rx Instructions:
DO NOT exceed >4000 mg daily.
ascorbic acid (vitamin C) [Vitamin C] 500 MG tablet
1,000 mg PO BID Qty: 56 0RF
cholecalciferol (vitamin D3) 1,000 UNITS tablet
1,000 unit PO DAILY Qty: 1 0RF
Referrals:
Ernesto Chowdary MD [Family Provider] -
Activity Restrictions/Additional Instructions:
You came to the emergency department today with concerns of panic attack. This is very likely be related to your recent oxycodone use. Please ensure no continued oxycodone use the symptoms should start to improve over the next few days. Return to
the emergency department for any worsening, new or concerning symptoms.
Interventions
Interventions:
*Risk Screen - Suicide Last Done: 08/28/23 12:53
*General Assessment Last Done: 08/28/23 12:53
*Neglect/Abuse Screening Last Done: 08/28/23 12:53
ED-Psychological Assessment Last Done: 08/28/23 16:20
Discharge Date and Time
Print Language: CYMRAES
[2023-08-28] MEDS: ATIVAN 1 MG IM (16:13)
== END 2023-08-28 16:43 | disposition home or self-care (01) ==
LOC: EMR 12:48
PROVIDERS: EMERGENCY PHYSICIAN Emergency Medicine; FAMILY PHYSICIAN Family Medicine
DX: F41.9 Anxiety disorder, unspecified (principal); R11.0 Nausea; L29.9 Pruritus, unspecified; F41.0 Panic disorder [episodic paroxysmal anxiety]; I34.1 Nonrheumatic mitral (valve) prolapse; Z98.890 Other specified postprocedural states; Z90.81 Acquired absence of spleen; Z88.6 Allergy status to analgesic agent; Z88.0 Allergy status to penicillin; Z79.82 Long term (current) use of aspirin
CPT/HCPCS: 99284; 96372

== ENCOUNTER 2023-08-29 03:35 | Emergency (ER) | payer MEDICARE, SELFPAY ==
[2023-08-29 03:37] VITALS: BP 158/98
--- NOTE | 2023-08-29 04:18 | ED.GENMED ---
History of Present Illness
<RASHI Chauhan - Last Filed: 08/29/23 05:10>
General
Chief Complaint: Sleep Disturbances
Time Seen by Provider: 08/29/23 04:16
Travel History
Have you had any contact with someone who has COVID-19?: No
Do you have any symptoms of coronavirus? Fever > 100 degrees, chills, cough, shortness of breath, sore throat, loss of taste or smell, muscle aches, or headache?: No
History of Present Illness
History of Present Illness:
This is a 72 yo male presenting for restlessness. He states 2 nights ago, he was unable to sleep, felt jittery, and felt anxious. He was here for similar symptoms yesterday and was given a dose of lorazepam, which he states helped. Now he states he
has the same symptoms but slightly less severe than yesterday. He denies chest pain, SOB, vomiting.
He recently had a knee replacement and finished a course of oxycodone, which he stopped 2 days ago.
Past History
<RASHI Chauhan - Last Filed: 08/29/23 05:10>
Past History
ED Past Medical History: Valvular disease (Mitral valve prolapse) and Other (Stomach ulcers, frequent headaches)
ED Past Surgical History: Other (History of hernia surgery, several colonoscopies, splenectomy in 1970)
Social History
Personal:
Living: with family
Employment: Employed
Review of Systems
<RASHI Chauhan - Last Filed: 08/29/23 05:10>
Review of Systems
Allergies reviewed?: Yes
Constitutional: Reports fever, fatigue, sleep disturbance and chills
EENT: Reports no symptoms
Respiratory: Reports no symptoms
Cardiac: Reports no symptoms
ABD/GI: Reports nausea
Phy Exam
<RASHI Chauhan - Last Filed: 08/29/23 05:10>
Physical Exam
Physical Exam:
somewhat restless and constanctly shifting in bed
General Physical Exam
General Presentation: mild distress
General Mental: alert
Cardiovascular Exam
Cardiovascular Exam: regular rate/rhythm
Pulmonary Exam
Pulmonary Exam: lungs clear
Neurological Exam
Neurological Exam: alert and oriented x3
Psychiatric Exam
Psychiatric Exam: normal mood/affect
Scores
<RASHI Chauhan - Last Filed: 08/29/23 05:10>
COW Clinical Opiate Withdrawal Scale
Score: 4
Withdrawal Severity: Minimal Withdrawal
<Zoey Mtz DO - Last Filed: 08/29/23 05:07>
COW Clinical Opiate Withdrawal Scale
Resting Pulse Rate: 81-100
Sweating-over past 30min not from room temp or activity: No report of chills or flushing
Restlessness-observation during assessment: Able to sit still
Pupil Size: Pupils pinned or normal size for room light
Bone or Joint Aches: Not present
Runny Nose or Tearing-not accounted for by cold/allergies: Not present
GI Upset-over last 30min: Nausea or loose stool
Tremor-observation of outstretched hands: No tremor
Yawning-observation during assessment: No yawning
Anxiety or Irritability: Patient reports increasing irritability or anxiousness
Gooseflesh Skin: Skin is smooth
Score: 4
Withdrawal Severity: Minimal Withdrawal
Course
<RASHI Chauhan - Last Filed: 08/29/23 05:10>
Orders/Labs/Results
Orders:
Orders
08/29/23 04:46
Lorazepam [Ativan] 1 mg PO NOW STA
Vital Signs
Initial and Last Documented VS:
Initial Vital Signs
Temp Pulse Resp BP Pulse Ox
97.8 F 94 24 158/98 98
08/29/23 03:37 08/29/23 03:37 08/29/23 03:37 08/29/23 03:37 08/29/23 03:37
Last Documented Vital Signs
Temp Pulse Resp BP Pulse Ox
97.8 F 94 24 158/98 98
08/29/23 03:37 08/29/23 03:37 08/29/23 03:37 08/29/23 03:37 08/29/23 03:37
<Zoey Mtz DO - Last Filed: 08/29/23 05:07>
Orders/Labs/Results
Orders:
Orders
08/29/23 04:46
Lorazepam [Ativan] 1 mg PO NOW STA
Vital Signs
Initial and Last Documented VS:
Initial Vital Signs
Temp Pulse Resp BP Pulse Ox
97.8 F 94 24 158/98 98
08/29/23 03:37 08/29/23 03:37 08/29/23 03:37 08/29/23 03:37 08/29/23 03:37
Last Documented Vital Signs
Temp Pulse Resp BP Pulse Ox
97.8 F 94 24 158/98 98
08/29/23 03:37 08/29/23 03:37 08/29/23 03:37 08/29/23 03:37 08/29/23 03:37
<RASHI Chauhan - Last Filed: 08/29/23 05:10>
MDM/Problems Addressed
Differential Diagnosis Includes:
Suspected opioid withdrawal
-On course of oxycodone since August 10 for knee replacement
-experiencing intermittent restlessness, nausea, and restless ness since discontiunuing course of opioids
<Zoey Mtz DO - Last Filed: 08/29/23 05:07>
*Pulse Oximetry
Patient hypoxic: no
*Critical Care Note
Total Time (30-74mins, 75-104mins- exclusive of procedures): Not Applicable
ED Attending Note
<RASHI Chauhan - Last Filed: 08/29/23 05:10>
-
Portions of this chart may have been created with voice recognition software.� Occasional wrong word or��sound alike� substitutions may have occurred due to the inherent limitations of voice recognition software.
<Zoey Mtz DO - Last Filed: 08/29/23 05:07>
ED Attending Note
Patient seen and examined by attending physician: Yes
I performed the substantive portion of visit, reviewed & personally made and approve the management plan that is documented in note by myself or PITER.: Yes
I performed a history and physical exam of patient and discussed management with resident, I reviewed resident's note and agree with documented findings and plan of care.: Yes
ED Attending Note:
This is a 72-year-old gentleman who underwent left total knee replacement August 09. He admits to moderate pain postoperatively and has received 4 prescriptions for Oxy IR 5 mg over the past 2 weeks, totaling 132 tablets dispensed since August 10. He
states he finished the Oxy IR prescription 2 days ago and does admit to improvement in left knee pain but over the past 24 to 36 hours he complains of moderate anxiety, intermittent nausea and difficulty sleeping. He denies vomiting, no diarrhea,
no abdominal cramps, no fever no chills, no chest pain or coughing or shortness of breath.
He does have history of anxiety/depression maintained on Celexa and is prescribed as needed lorazepam by his PCP. He admits to rare lorazepam use and according to PDMP he has been prescribed 2 prescriptions for lorazepam over the past year, 0.5 mg,
20 tablets per prescription. Last prescription 1 month ago. Consistent with his history.
He was seen in this ED yesterday afternoon for similar complaint, given 1 mg lorazepam with reported improvement in symptoms but tonight symptoms have returned with a sense of anxiety, mild nausea and difficulty sleeping.
He states he has been rehabbing at home, doing home exercises for his knee and overall knee pain and range of motion have been improving.
He has a follow-up appointment with orthopedics scheduled for tomorrow, August 29.
GENERAL: 72-year-old gentleman appears his stated age, awake and alert, pleasant, appears in no acute distress. Resting comfortably on stretcher.
EYE: anicteric
NECK: Supple, nontender, no meningismus, no significant adenopathy.
ENT: oral mucosa is moist. No rhinorrhea.
CARDIAC: Regular rate and rhythm. no murmur.
LUNGS: Clear breath sounds bilaterally, no acute respiratory distress, no wheezes/rales/rhonchi
ABDOMEN: Soft, nondistended, without focal tenderness, no r/g, normoactive BS.
NEUROLOGICAL: Alert and oriented x3, no focal neuro deficits. Motor strength is 5/5 bilaterally. Gross sensation is intact.
SKIN: Warm and dry, normal color, skin intact. No rash.
MUSCULOSKELETAL: Mild peripheral edema left lower extremity. Knee-high Steven stocking in place left lower extremity. Left anterior knee incision with dry and intact occlusive Tegaderm dressing. There is moderate global joint effusion left knee with
mild local tenderness to palpation. There is no erythema.
PSYCH: Normal and appropriate interaction.
I highly suspect patient's mild anxiety and acute insomnia over the past 2 days is mild opioid withdrawal in nature.
There is no evidence of infection, knee overall is looking good.
COWS score is 4 consistent with mild withdrawal.
At this point does not appear patient requires any further opioids and we discussed general nature of opioid withdrawal and his symptoms should improve over the next 24 hours.
Will give 1 more dose of lorazepam 1 mg and discharged to home.
Recommend prompt follow-up with PCP for recheck and discuss further options if symptoms persist.
Follow-up with orthopedics tomorrow as already scheduled.
Discharge Plan
Departure
Patient Disposition: Home (Routine Discharge)
Date of Disposition: 08/29/23
Time of Disposition: 04:47
Patient with high blood pressure during this ER visit?: No
Condition: Good
Discharge Problem:
Opioid use with withdrawal
Instructions: Generalized Anxiety Disorder (DC), Insomnia (DC)
Prescriptions:
No Action
citalopram 20 MG tablet
5 mg PO DAILY
Patient Comments:
lunch
multivitamin [One Daily Multivitamin] 1 EACH tablet
1 ea PO DAILY
Patient Comments:
lunch
sildenafil 100 MG tablet
50 mg PO DAILYPRN PRN (Reason: unknown)
metoprolol tartrate 25 MG tablet
25 mg PO DAILY
Patient Comments:
took 12.5mg 08/10/23 at 0500
zinc sulfate 220 MG capsule
220 mg PO DAILY Qty: 14 0RF
Rx Instructions:
Take 220 mg daily for 14 days
lansoprazole 30 mg Capsule,Delayed Release(Dr/Ec)
30 mg PO DAILY
magnesium 250 mg Tablet
500 mg PO DAILY
colestipol 1 gram Tablet
4 g PO DAILY
rosuvastatin 40 mg Tablet
40 mg PO QPM
omega 0-zmg-adf-fish oil [Fish Oil] 1,000 mg (120 mg-180 mg) Capsule
1 cap PO BID
Hold Instructions: Resume on 08/17/23.
mupirocin 2 % ointment
1 applic intranasal BID Qty: 1 0RF
Patient Comments:
started treatment monday08/07/23 in am and completed BID and last took at home 08/10/23 in am
tamsulosin [Flomax] 0.4 mg capsule
0.4 mg PO HS Qty: 10 0RF
Patient Comments:
last took 08/09/23 at 2100
Rx Instructions:
Start 3 nights prior to surgery and continue for 1 week post-surgery.
HOLD if systolic blood pressure <130.
aspirin 81 mg Tablet,Delayed Release (Dr/Ec)
81 mg PO DAILY Qty: 30 0RF
Rx Instructions:
Take daily x4 weeks for blood clot prevention
lorazepam 0.5 mg Tablet
0.5 mg PO BID Qty: 14 0RF
Rx Instructions:
Home medication.
Increase to twice day dosing x1 week post-surgery.
prochlorperazine maleate 5 mg Tablet
5 mg PO Q8H PRN (Reason: nausea/vomiting) Qty: 30 0RF
docusate sodium 100 mg Capsule
100 mg PO BID Qty: 30 0RF
gabapentin 300 mg Capsule
300 mg PO TID Qty: 30 0RF
oxycodone 5 mg Tablet
5 - 10 mg PO Q4H PRN (Reason: moderate-severe pain) Qty: 30 0RF
Rx Instructions:
1 tab for moderate pain, 2 if severe.
Dx total joint
sennosides [Senna Laxative] 8.6 mg Tablet
17.2 mg PO BID PRN (Reason: constipation) Qty: 30 0RF
Rx Instructions:
Add to bowel regimen of Colace if no bowel movement occurs within 2-3 days post-surgery.
acetaminophen [Acetaminophen Extra Strength] 500 mg tablet
1,000 mg PO Q6H Qty: 60 0RF
Rx Instructions:
DO NOT exceed >4000 mg daily.
ascorbic acid (vitamin C) [Vitamin C] 500 MG tablet
1,000 mg PO BID Qty: 56 0RF
cholecalciferol (vitamin D3) 1,000 UNITS tablet
1,000 unit PO DAILY Qty: 1 0RF
Referrals:
Ernesto Chowdary MD [Family Provider] - Next open appointment
Activity Restrictions/Additional Instructions:
Call your family doctor today for follow-up appointment.
Follow-up with orthopedics tomorrow as already scheduled.
Interventions
Interventions:
*Risk Screen - Suicide Last Done: 08/29/23 03:37
*Neglect/Abuse Screening Last Done: 08/29/23 03:37
Discharge Date and Time
Print Language: AMHARIC
[2023-08-29] MEDS: ATIVAN 1 MG PO (04:48)
== END 2023-08-29 05:30 | disposition home or self-care (01) ==
LOC: EMR 03:35
PROVIDERS: EMERGENCY PHYSICIAN Emergency Medicine; FAMILY PHYSICIAN Family Medicine
DX: F11.93 Opioid use, unspecified with withdrawal (principal); M25.462 Effusion, left knee
CPT/HCPCS: 99283

== ENCOUNTER 2023-08-29 13:49 | Emergency (ER) | payer MEDICARE, SELFPAY ==
[2023-08-29 13:54] VITALS: BP 144/84
--- NOTE | 2023-08-29 14:22 | ED.GENMED ---
History of Present Illness
General
Chief Complaint: Anxiety
Source: patient and records
Time Seen by Provider: 08/29/23 14:07
Travel History
Have you had any contact with someone who has COVID-19?: No
Do you have any symptoms of coronavirus? Fever > 100 degrees, chills, cough, shortness of breath, sore throat, loss of taste or smell, muscle aches, or headache?: No
History of Present Illness
History of Present Illness:
72-year-old male with past medical history of migraines, hyperlipidemia, valvular disorder, GERD, anxiety/depression, status post left total knee arthroplasty done at the beginning of this month presenting back to the emergency department for the
third time in 36 hours for continued anxiety stating he feels he is restless, unable to sleep, having a hard time eating and drinking. Patient was given Ativan on both of his visits to the emergency department which he noticed helped his symptoms
but upon getting home states his symptoms were just returned. Patient believes he attempted to contact his primary care provider but did not hear back from them prompting him to come to the ER today. He also notes that he contacted his orthopedic
office who was not of any help to the patient. Of note, patient has been on extensive pain medications since May including tramadol, hydrocodone and oxycodone having 130 tablets of oxycodone filled/taken since August 10. He has not had any
further oxycodone since 2 days ago. He denies any fevers, chills, rigors, chest pain, shortness of breath, palpitations, diaphoresis, exertional dyspnea or any other concerns.
Past History
Past History
ED Past Medical History: Arrthythmia, GERD, Valvular disease (Mitral valve prolapse) and Other (Stomach ulcers, frequent headaches)
ED Past Surgical History: Orthopedic, Tonsilectomy and Other (History of hernia surgery, several colonoscopies, splenectomy in 1970)
Social History
Tobacco: Non-smoker
Alcohol: None
Drug: None
Personal:
Living: with family
Employment: Employed
Review of Systems
Review of Systems
All Other Systems: ROS reviewed and negative except as documented in HPI and ROS
Phy Exam
Physical Exam
Physical Exam:
GENERAL: Alert , in no apparent distress
EYE: conjunctiva clear
Head: Normocephalic atraumatic
NECK: Supple,
ENT: mmm.
LUNGS: no acute respiratory distress
NEUROLOGICAL: Alert and oriented
SKIN: Warm and dry, skin intact.
MUSCULOSKELETAL: well perfused.
PSYCH: Normal and appropriate interaction.
Scores
COW Clinical Opiate Withdrawal Scale
Resting Pulse Rate: 81-100
Sweating-over past 30min not from room temp or activity: No report of chills or flushing
Restlessness-observation during assessment: Reports difficulty sittin
Pupil Size: Pupils pinned or normal size for room light
Bone or Joint Aches: Not present
Runny Nose or Tearing-not accounted for by cold/allergies: Not present
GI Upset-over last 30min: Stomach cramps
Tremor-observation of outstretched hands: No tremor
Yawning-observation during assessment: No yawning
Anxiety or Irritability: Patient reports increasing irritability or anxiousness
Gooseflesh Skin: Skin is smooth
Score: 4
Withdrawal Severity: Minimal Withdrawal
Heart Failure Risk
Heart Failure Risk Score: Not Applicable
Heart Score for Chest Pain Patients
STEMI patient?: Not applicable
Withdrawal Assessment of Alcohol
Withdrawal Assessment Completed?: Not applicable
Course
Orders/Labs/Results
Orders:
Orders
08/29/23 14:21
Crisis Consult Urgent
Reason for Consult: anxiety/depression
Vital Signs
Initial and Last Documented VS:
Initial Vital Signs
Temp Pulse Resp BP Pulse Ox
98.1 F 91 18 144/84 98
08/29/23 13:54 08/29/23 13:54 08/29/23 13:54 08/29/23 13:54 08/29/23 13:54
Last Documented Vital Signs
Temp Pulse Resp BP Pulse Ox
98.1 F 79 20 134/71 99
08/29/23 13:54 08/29/23 16:00 08/29/23 16:00 08/29/23 16:00 08/29/23 16:00
MDM/Problems Addressed
Differential Diagnosis Includes:
Exacerbation of anxiety, opioid withdrawal, I do not have concern for an acute emergent process
MDM/Problems Addressed:
72-year-old male presenting the emergency department for exacerbation of his anxiety, seen in this emergency department 3 separate times within the last 36 hours for the same. Patient treated with Ativan on the last 2 visits reporting some relief
with this but symptoms returning after getting home. Patient is in no acute distress. I had extensive conversation with patient in regards to his symptoms as well as the difficulty in managing anxiety from the emergency department. I also
approached the patient about his opioid use and that I was concerned with the amount of opioids he had a short period of time is also likely contributing to his symptoms. There is no SI/HI but will obtain a crisis consultation in hopes to help the
patient on an outpatient basis with management of his anxiety and depression. Would like to avoid any further opiates/benzodiazepines as this is likely only contributing further to the patient's continued symptoms.
Chronic conditions affecting care: Psychiatric illness
Acute Exacerbation and/or Progression of Chronic Illness: Psychiatric illness
*Pulse Oximetry
Patient hypoxic: no
*Critical Care Note
Total Time (30-74mins, 75-104mins- exclusive of procedures): Not Applicable
Data Reviewed
Review of Other/Old Records Reveals: Labs and Records
Source: patient
Patient Management
Discussion with other providers: PCP and Other ([facility])
Escalation/DeEscalation of care consider admission/obs:
Patient was seen by our [facility] staff who states patient was potentially interested in inpatient management of opioid addiction which [facility]. I contacted [facility] and patient was interested in treatment
overall patient was actually more interested in possible buprenorphine and outpatient management versus inpatient treatment. I contacted the patient's primary care provider, Dr. Chowdary, who is aware of patient's visit to the emergency department as
well as the disposition plan to start on buprenorphine 2 mg sublingual and will ensure close outpatient follow-up. Patient is otherwise stable for discharge home and aware of return precautions to the ER.
ED Attending Note
-
Portions of this chart may have been created with voice recognition software.� Occasional wrong word or��sound alike� substitutions may have occurred due to the inherent limitations of voice recognition software.
Discharge Plan
Departure
Patient Disposition: Home (Routine Discharge)
Date of Disposition: 08/29/23
Time of Disposition: 15:43
Patient with high blood pressure during this ER visit?: Yes
Discharge Problem:
Anxiety
Instructions: Anxiety, Adult (DC)
Prescriptions:
New
buprenorphine-naloxone 2-0.5 mg film
1 film buccal DAILY Qty: 30 0RF
No Action
citalopram 20 MG tablet
5 mg PO DAILY
Patient Comments:
lunch
multivitamin [One Daily Multivitamin] 1 EACH tablet
1 ea PO DAILY
Patient Comments:
lunch
sildenafil 100 MG tablet
50 mg PO DAILYPRN PRN (Reason: unknown)
metoprolol tartrate 25 MG tablet
25 mg PO DAILY
Patient Comments:
took 12.5mg 08/10/23 at 0500
zinc sulfate 220 MG capsule
220 mg PO DAILY Qty: 14 0RF
Rx Instructions:
Take 220 mg daily for 14 days
lansoprazole 30 mg Capsule,Delayed Release(Dr/Ec)
30 mg PO DAILY
magnesium 250 mg Tablet
500 mg PO DAILY
colestipol 1 gram Tablet
4 g PO DAILY
rosuvastatin 40 mg Tablet
40 mg PO QPM
omega 3-sgz-asn-fish oil [Fish Oil] 1,000 mg (120 mg-180 mg) Capsule
1 cap PO BID
Hold Instructions: Resume on 08/17/23.
mupirocin 2 % ointment
1 applic intranasal BID Qty: 1 0RF
Patient Comments:
started treatment monday08/07/23 in am and completed BID and last took at home 08/10/23 in am
tamsulosin [Flomax] 0.4 mg capsule
0.4 mg PO HS Qty: 10 0RF
Patient Comments:
last took 08/09/23 at 2100
Rx Instructions:
Start 3 nights prior to surgery and continue for 1 week post-surgery.
HOLD if systolic blood pressure <130.
aspirin 81 mg Tablet,Delayed Release (Dr/Ec)
81 mg PO DAILY Qty: 30 0RF
Rx Instructions:
Take daily x4 weeks for blood clot prevention
lorazepam 0.5 mg Tablet
0.5 mg PO BID Qty: 14 0RF
Rx Instructions:
Home medication.
Increase to twice day dosing x1 week post-surgery.
prochlorperazine maleate 5 mg Tablet
5 mg PO Q8H PRN (Reason: nausea/vomiting) Qty: 30 0RF
docusate sodium 100 mg Capsule
100 mg PO BID Qty: 30 0RF
gabapentin 300 mg Capsule
300 mg PO TID Qty: 30 0RF
oxycodone 5 mg Tablet
5 - 10 mg PO Q4H PRN (Reason: moderate-severe pain) Qty: 30 0RF
Rx Instructions:
1 tab for moderate pain, 2 if severe.
Dx total joint
sennosides [Senna Laxative] 8.6 mg Tablet
17.2 mg PO BID PRN (Reason: constipation) Qty: 30 0RF
Rx Instructions:
Add to bowel regimen of Colace if no bowel movement occurs within 2-3 days post-surgery.
acetaminophen [Acetaminophen Extra Strength] 500 mg tablet
1,000 mg PO Q6H Qty: 60 0RF
Rx Instructions:
DO NOT exceed >4000 mg daily.
ascorbic acid (vitamin C) [Vitamin C] 500 MG tablet
1,000 mg PO BID Qty: 56 0RF
cholecalciferol (vitamin D3) 1,000 UNITS tablet
1,000 unit PO DAILY Qty: 1 0RF
Referrals:
Ernesto Chowdary MD [Family Provider] -
Interventions
Interventions:
*Risk Screen - Suicide Last Done: 08/29/23 13:54
*General Assessment Last Done: 08/29/23 13:54
*Neglect/Abuse Screening Last Done: 08/29/23 13:54
*Nursing Disposition Last Done: 08/29/23 16:07
ED-Psychological Assessment Last Done: 08/29/23 15:30
Discharge Date and Time
Discharge Date/Time: 08/29/23 16:08
Print Language: ALBANIAN
[2023-08-29 16:00] VITALS: BP 134/71
== END 2023-08-29 16:08 | disposition home or self-care (01) ==
LOC: EMR 13:49
PROVIDERS: EMERGENCY PHYSICIAN Emergency Medicine; FAMILY PHYSICIAN Family Medicine
DX: F41.9 Anxiety disorder, unspecified (principal); F32.A Depression, unspecified; R03.0 Elevated blood-pressure reading, without diagnosis of hypertension
CPT/HCPCS: 99283

== ENCOUNTER 2023-10-26 18:38 | Emergency (ER) | payer MEDICARE, SELFPAY ==
[2023-10-26 18:41] VITALS: BP 150/79
--- NOTE | 2023-10-26 19:48 | ED.GENMED ---
History of Present Illness
General
Chief Complaint: Prescription Refill
Source: patient
Exam Limitations: none
Time Seen by Provider: 10/26/23 19:05
Nursing documentation reviewed up to this point in time: agreed with
History of Present Illness
History of Present Illness:
Patient presents to ED requesting dose of Suboxone, which he was not able to take today, as his prescription from [facility] was not received at the pharmacy this afternoon. Patient feels anxious. Denies nausea or vomiting. Denies fever.
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
Past History
Past History
ED Past Medical History: Arrthythmia, GERD, Valvular disease (Mitral valve prolapse) and Other (Stomach ulcers, frequent headaches)
ED Past Surgical History: Orthopedic, Tonsilectomy and Other (History of hernia surgery, several colonoscopies, splenectomy in 1970)
Social History
Tobacco: Non-smoker
Alcohol: None
Drug: None
Personal:
Living: with family
Employment: Employed
Review of Systems
Review of Systems
Allergies reviewed?: Yes
All Other Systems: ROS reviewed and negative except as documented in HPI and ROS
Constitutional: Reports no symptoms
Respiratory: Reports no symptoms; Denies trouble breathing
Cardiac: Reports no symptoms; Denies chest pain
ABD/GI: Reports no symptoms; Denies nausea or vomiting
Musculoskeletal: Reports no symptoms
Skin: Reports no symptoms
Neurological: Reports no symptoms; Denies weakness
Psychiatric: Reports anxiety; Denies depression or suicidal
Phy Exam
Physical Exam
Physical Exam:
Physical Exam
General: no apparent distress, not acutely ill. afebrile. anxious appearing.
Head: nc/at. eomi
Neck: supple. normal range of motion
Neuro: alert and oriented. no focal neurological deficits
Skin: no rash
Psychiatric: well kept. interactive and cooperative
Extremities: no edema. no calf tenderness.
Course
Orders/Labs/Results
Orders:
Orders
10/26/23 19:47
Buprenorphine [Subutex] 2 mg SL NOW ONE
Vital Signs
Initial and Last Documented VS:
Initial Vital Signs
Temp Pulse Resp BP Pulse Ox
98.1 F 67 16 150/79 96
10/26/23 18:41 10/26/23 18:41 10/26/23 18:41 10/26/23 18:41 10/26/23 18:41
Last Documented Vital Signs
Temp Pulse Resp BP Pulse Ox
98.1 F 67 16 150/79 96
10/26/23 18:41 10/26/23 18:41 10/26/23 18:41 10/26/23 18:41 10/26/23 18:41
MDM/Problems Addressed
MDM/Problems Addressed:
I feel that single dose of Subutex in ED, along with follow-up at [facility] tomorrow morning is appropriate at this time. Patient is otherwise afebrile, hemodynamically stable, neurologically intact, at time of discharge to the care of his
.
*Critical Care Note
Total Time (30-74mins, 75-104mins- exclusive of procedures): Not Applicable
ED Attending Note
-
Portions of this chart may have been created with voice recognition software.� Occasional wrong word or��sound alike� substitutions may have occurred due to the inherent limitations of voice recognition software.
Discharge Plan
Departure
Patient Disposition: Home (Routine Discharge)
Date of Disposition: 10/26/23
Time of Disposition: 19:48
Patient with high blood pressure during this ER visit?: Yes
Condition: Good
Discharge Problem:
Encounter for medication refill
Prescriptions:
No Action
citalopram 20 MG tablet
5 mg PO DAILY
Patient Comments:
lunch
multivitamin [One Daily Multivitamin] 1 EACH tablet
1 ea PO DAILY
Patient Comments:
lunch
sildenafil 100 MG tablet
50 mg PO DAILYPRN PRN (Reason: unknown)
metoprolol tartrate 25 MG tablet
25 mg PO DAILY
Patient Comments:
took 12.5mg 08/10/23 at 0500
zinc sulfate 220 MG capsule
220 mg PO DAILY Qty: 14 0RF
Rx Instructions:
Take 220 mg daily for 14 days
lansoprazole 30 mg Capsule,Delayed Release(Dr/Ec)
30 mg PO DAILY
magnesium 250 mg Tablet
500 mg PO DAILY
colestipol 1 gram Tablet
4 g PO DAILY
rosuvastatin 40 mg Tablet
40 mg PO QPM
omega 7-jep-oot-fish oil [Fish Oil] 1,000 mg (120 mg-180 mg) Capsule
1 cap PO BID
Hold Instructions: Resume on 08/17/23.
mupirocin 2 % ointment
1 applic intranasal BID Qty: 1 0RF
Patient Comments:
started treatment monday08/07/23 in am and completed BID and last took at home 08/10/23 in am
tamsulosin [Flomax] 0.4 mg capsule
0.4 mg PO HS Qty: 10 0RF
Patient Comments:
last took 08/09/23 at 2100
Rx Instructions:
Start 3 nights prior to surgery and continue for 1 week post-surgery.
HOLD if systolic blood pressure <130.
aspirin 81 mg Tablet,Delayed Release (Dr/Ec)
81 mg PO DAILY Qty: 30 0RF
Rx Instructions:
Take daily x4 weeks for blood clot prevention
lorazepam 0.5 mg Tablet
0.5 mg PO BID Qty: 14 0RF
Rx Instructions:
Home medication.
Increase to twice day dosing x1 week post-surgery.
prochlorperazine maleate 5 mg Tablet
5 mg PO Q8H PRN (Reason: nausea/vomiting) Qty: 30 0RF
docusate sodium 100 mg Capsule
100 mg PO BID Qty: 30 0RF
gabapentin 300 mg Capsule
300 mg PO TID Qty: 30 0RF
oxycodone 5 mg Tablet
5 - 10 mg PO Q4H PRN (Reason: moderate-severe pain) Qty: 30 0RF
Rx Instructions:
1 tab for moderate pain, 2 if severe.
Dx total joint
sennosides [Senna Laxative] 8.6 mg Tablet
17.2 mg PO BID PRN (Reason: constipation) Qty: 30 0RF
Rx Instructions:
Add to bowel regimen of Colace if no bowel movement occurs within 2-3 days post-surgery.
acetaminophen [Acetaminophen Extra Strength] 500 mg tablet
1,000 mg PO Q6H Qty: 60 0RF
Rx Instructions:
DO NOT exceed >4000 mg daily.
ascorbic acid (vitamin C) [Vitamin C] 500 MG tablet
1,000 mg PO BID Qty: 56 0RF
cholecalciferol (vitamin D3) 1,000 UNITS tablet
1,000 unit PO DAILY Qty: 1 0RF
buprenorphine-naloxone 2-0.5 mg film
1 film buccal DAILY Qty: 30 0RF
Referrals:
Ernesto Chowdary MD [Family Provider] -
Activity Restrictions/Additional Instructions:
As discussed, please follow up with [facility] tomorrow for continual evaluation and treatment.
Interventions
Interventions:
*General Assessment Last Done: 10/26/23 18:41
*ED COVID-19 Vaccine History Last Done: 10/26/23 18:41
*Nursing Disposition Last Done: 10/26/23 20:03
Discharge Date and Time
Discharge Date/Time: 10/26/23 20:04
Print Language: THAI
[2023-10-26] MEDS: SUBUTEX 2 MG SL (19:56)
== END 2023-10-26 20:04 | disposition home or self-care (01) ==
LOC: EMR 18:38
PROVIDERS: EMERGENCY PHYSICIAN Emergency Medicine; FAMILY PHYSICIAN Family Medicine
DX: Z76.0 Encounter for issue of repeat prescription (principal); R03.0 Elevated blood-pressure reading, without diagnosis of hypertension; K21.9 Gastro-esophageal reflux disease without esophagitis; I34.1 Nonrheumatic mitral (valve) prolapse; Z87.11 Personal history of peptic ulcer disease; Z98.890 Other specified postprocedural states; Z90.81 Acquired absence of spleen; Z88.6 Allergy status to analgesic agent; Z88.0 Allergy status to penicillin
CPT/HCPCS: 99283

== ENCOUNTER 2025-03-28 06:32 | Day surgery (SDC) | payer MEDICARE, SELFPAY | END 2025-03-28 13:40 | disposition home or self-care (01) | LOC: GI 06:32 | PROVIDERS: ATTENDING PHYSICIAN Internal Medicine Gastroenterology | DX: Z12.11 Encounter for screening for malignant neoplasm of colon (principal); K64.8 Other hemorrhoids; K57.30 Diverticulosis of large intestine without perforation or abscess without bleeding | CPT/HCPCS: G0121 ==

== ENCOUNTER → 2025-03-31 12:36 | Outpatient (REF) | payer MEDICARE, SELFPAY | LOC: RAD 12:36 | PROVIDERS: ATTENDING PHYSICIAN Family Medicine | DX: R93.89 Abnormal findings on diagnostic imaging of other specified body structures (principal); G89.29 Other chronic pain; M54.50 Low back pain, unspecified | CPT/HCPCS: 71250; 72110 ==